=== PATIENT | male | born 1990 | race African-American/Black ===

== ENCOUNTER 2020-10-16 12:06 | Emergency (ER) | payer SELFPAY ==
[~2020-10-16] VITALS: Ht 175.3 cm; Wt 86.2 kg
--- NOTE | 2020-10-16 12:16 | NUR ---
at bedside for assessment
--- NOTE | 2020-10-16 12:17 | NUR ---
noted cutting out sutures on right ankle at this time
[2020-10-16] MEDS ORDERED: BACITRACIN ZINC OINT 15 GM TUBE TOP STA (12:25)
[2020-10-16] MEDS ORDERED: IBUP-1955 PO (12:53)
[2020-10-16] MEDS ORDERED: CEPH500C2 PO (12:53)
[2020-10-16] MEDS ORDERED: SULF1TAB48 PO (12:53)
[2020-10-16] MEDS ORDERED: BACITRACIN ZINC OINT 15 GM TUBE ONE (12:54)
--- NOTE | 2020-10-16 13:11 | NUR ---
Right ankle suture site cleansed a normal saline and then dressed with bacitracin and bordered gauze
[2020-10-16 13:15] VITALS: BP 135/77
== END 2020-10-16 13:16 | disposition home or self-care (01) ==
LOC: ER 12:06
DX: S91.011D Laceration without foreign body, right ankle, subsequent encounter (principal); L03.115 Cellulitis of right lower limb; V00.148D Other scooter (nonmotorized) accident, subsequent encounter
CPT/HCPCS: A4663